=== PATIENT | female | born 1965 | race Caucasian/White ===

== ENCOUNTER 2019-10-05 13:43 | Emergency (ER) | payer MEDICAID, SELFPAY ==
[2019-10-05 14:00] VITALS: BP 165/103; PULSE 80; RESP 20; TEMP 36.9; O2SAT 99; BMI 17.9
[2019-10-05 14:05] VITALS: BP 00/00; PULSE 0; RESP 0; TEMP -17.7; TEMP 0
== END 2019-10-05 14:06 | disposition left against medical advice (07) ==
PROVIDERS: Emergency Provider Nurse Practitioner Family; PCP Emergency Medicine
DX: Z53.21 Procedure and treatment not carried out due to patient leaving prior to being seen by health care provider (principal)

== ENCOUNTER 2023-02-14 15:04 | Emergency (ER) | payer MEDICAID, SELFPAY ==
[2023-02-14 15:12] VITALS: BP 161/88; PULSE 95; RESP 18; TEMP 36.6; O2SAT 100; BMI 17.5
--- NOTE | 2023-02-14 15:36 | [facility].EDGENADL ---
Discharge Plan Disposition Patient Disposition: Home, Self-Care Prescriptions Prescriptions: New prednisone 20 mg tablet 40 mg PO BID 5 Days Qty: 20 0RF methocarbamol 750 mg tablet 750 mg PO TID 5 Days Qty: 15 0RF lidocaine 5 % adhesive patch,medicated 1 patch topical DAILY Qty: 15 0RF Rx Instructions: leave on most painful area for up to 12 hrs No Action cephalexin 500 MG capsule 500 mg PO QID Qty: 40 0RF Referrals Follow up/Referrals: Milli Moore [Primary Care Provider] - See instructions Activity Restrictions/Add. Instructions Additional Instructions/Restrictions: Call your family doctor to establish care for this visit to the emergency department and schedule follow-up within 48 hours to ensure improvement. If you have any worsening of your condition or any other concerning signs or symptoms, return to the emergency department or your primary care doctor for further evaluation. Robaxin can cause you to feel drowsy. Do not drive, operate heavy machinery, or engage in any activity that may make you tired, fall asleep, and because harm to yourself or others while taking this medication. Take Tylenol 1000 mg every 6 hours (4 times daily) and ibuprofen 400 mg every 6 hours (4 times daily) as needed with food and water to prevent GI upset and kidney damage. Clinical Impressions Clinical Impression: Lumbago of lumbar region with sciatica Discharge ED Provider: Ozzy Kwon General Adult HPI General Chief complaint: PAIN Stated complaint: back pain Time Seen by Provider: 02/14/23 15:09 Mode of Arrival: Ambulatory Source of Information: Patient Limitations: No Limitations Description of Symptoms (Recalled from ER Triage Doc. by RN): c/o lower back pain that started today. States she has been moving/packing the last 2 days which she thinks is the cause of pain. History of Present Illness HPI narrative: 58-year-old female no relevant medical history presenting with back pain. Patient states that she has been moving for the past 2 or 3 days, hurt her back 2 days ago and felt a pop, but did not have any pain. 1 day prior to arrival, started having pain just before bed. Pain is worse with change in position including sitting to standing and standing to sitting. Minimal at rest. Patient denies bowel or bladder dysfunction, lower extremity weakness, or saddle anesthesia. She does have a pain running down her right buttock associated with numbness. Has taken ibuprofen for the pain, but does not seem to help much. Related Data Previous Rx's Medication Instructions Recorded cephalexin 500 mg capsule 500 mg PO QID #40 caps 02/10/18 lidocaine 5 % topical patch 1 patch topical DAILY #15 ea 02/14/23 methocarbamol 750 mg tablet 750 mg PO TID 5 days #15 tabs 02/14/23 prednisone 20 mg tablet 40 mg PO BID 5 days #20 tabs 02/14/23 Allergies Allergy/AdvReac Type Severity Reaction Status Date / Time No Known Allergies Allergy Unverified 02/19/17 14:51 [facility] Disclaimer: The information contained in this section may have been updated after the patient was seen, as this information can be updated by other users. Social History Smoking Status: Current every day smoker alcohol intake: never current occupational status: retired Travel in the last 8 weeks: None ROS Obtained: Yes All systems reviewed & no additional complaints except as documented Physical Exam General General appearance: alert and in no apparent distress Head Head exam: atraumatic and normocephalic Eye Eye exam: Present normal appearance, PERRL and EOMI ENT ENT exam: Present mucous membranes moist Neck Neck exam: Present normal inspection, full ROM and trachea midline Respiratory Respiratory exam: Absent respiratory distress, wheezes, stridor, accessory muscle use or prolonged expiratory phase Cardiovascular Cardiovascular exam: Present normal rhythm Abdominal Exam Abdominal exam: Present soft; Absent di
[2023-02-14 16:24] VITALS: BP 158/86; PULSE 90; RESP 18; TEMP 36.4; O2SAT 100
== END 2023-02-14 16:25 | disposition home or self-care (01) ==
PROVIDERS: Emergency Provider Emergency Medicine; PCP Nurse Practitioner Family
DX: M54.41 Lumbago with sciatica, right side (principal); F17.200 Nicotine dependence, unspecified, uncomplicated
CPT/HCPCS: 99283